=== PATIENT | female | born 1955 | race African-American/Black ===

== ENCOUNTER 2023-08-11 18:17 | Observation (INO) | payer MEDICARE, MEDICAID ==
[~2023-08-11] VITALS: Ht 172.7 cm; Wt 116.0 kg
[2023-08-11] VITALS (12 sets, daily range): BP systolic 140–188; BP diastolic 71–91
[2023-08-11 19:10] LABS: BASO% 0.4 % (0-3); EOS% 2.6 % (0-8); HEMATOCRIT 44.3 % (37.0-47.0); HEMOGLOBIN 14.1 g/dl (12.0-16.0); IMMATURE GRANULOCYTES 0.3 % (0.0-5.0); LYMPH% 50.7 % (15-41); MEAN CELL VOLUME 95.3 fL CALC (80.0-100.0); MEAN CORPUSCULAR HGB 30.3 pG CALC (26.0-32.0); MEAN CORPUSCULAR HGB CONC 31.8 g/dL CAL (32.0-36.0); MONO% 8.5 % (2-13); NEUT# 2.88 thou/uL (2.00-7.15); NEUT% 37.5 % (42-76); RED BLOOD COUNT 4.65 mill/uL (4.20-5.60)
[2023-08-11 19:16] LABS: ALBUMIN 3.9 g/dL (3.2-5.0); ALKALINE PHOSPHATASE 74 u/l (38-126); ANION GAP 13 (6-22 (CALC)); BILIRUBIN, TOTAL 0.4 mg/dL (0.02-1.3); BUN 6 mg/dL (8-23); BUN/CREATININE RATIO 8 (12-20 (CALC)); CARBON DIOXIDE 25 mmol/l (22-30); CHLORIDE 107 mmol/l (95-108); CREATININE 0.8 mg/dL (0.5-1.0); GFR FOR AFR.AMER. > 60 ML/MIN (>=60 (CALC)); GFR OTHER RACES > 60 ML/MIN (>=60 (CALC)); LIPASE 54 u/l (23-300); POTASSIUM 3.4 mmol/l (3.5-5.1); SGOT/AST 34 u/l (9-36); SODIUM 141 mmol/l (137-146); TOTAL PROTEIN 7.5 g/dL (6.3-8.2)
[2023-08-11 20:32] LABS: URINE BILIRUBIN - DIPSTICK Negative (NEGATIVE); URINE BLOOD DIPSTICK Negative (NEGATIVE); URINE GLUCOSE - DIPSTICK Negative (NEGATIVE); URINE KETONE Negative (NEGATIVE); URINE LEUK ESTERASE Negative (NEGATIVE); URINE NITRITE - DIPSTICK Negative (Negative); URINE PROTEIN - DIPSTICK Negative (NEG-TRACE); URINE UROBILINOGEN - DIPSTICK 0.2 E.U./dL (0.2)
[2023-08-11 20:35] LABS: URINE COLOR Yellow
[2023-08-11] MEDS ORDERED: MECLIZINE25 MG PO (20:41)
[2023-08-11] MEDS ORDERED: METRONIDAZOLE500 MG PO (20:42)
[2023-08-11] MEDS ORDERED: BACLOFEN20 MG PO (20:42)
[2023-08-11] MEDS ORDERED: ATORVASTATIN CA40 MG PO (20:42)
[2023-08-11] MEDS ORDERED: MONTELUKAST SOD10 MG PO (20:42)
[2023-08-12 05:06] VITALS: BP 132/51
[2023-08-12 06:17] LABS: BASO% 0.3 % (0-3); EOS% 0.3 % (0-8); HEMATOCRIT 42.5 % (37.0-47.0); HEMOGLOBIN 13.7 g/dl (12.0-16.0); IMMATURE GRANULOCYTES 0.1 % (0.0-5.0); LYMPH% 23.7 % (15-41); MEAN CELL VOLUME 93.6 fL CALC (80.0-100.0); MEAN CORPUSCULAR HGB 30.2 pG CALC (26.0-32.0); MEAN CORPUSCULAR HGB CONC 32.2 g/dL CAL (32.0-36.0); MONO% 7.8 % (2-13); NEUT# 4.94 thou/uL (2.00-7.15); NEUT% 67.8 % (42-76); RED BLOOD COUNT 4.54 mill/uL (4.20-5.60); RED CELL DISTRI WIDTH 13.9 % (11.5-15.5)
[2023-08-12 06:30] VITALS: BP 140/63
[2023-08-12 06:40] LABS: ALBUMIN 3.4 g/dL (3.2-5.0); ALKALINE PHOSPHATASE 84 u/l (38-126); ANION GAP 12 (6-22 (CALC)); BILIRUBIN, TOTAL 0.5 mg/dL (0.02-1.3); BUN 6 mg/dL (8-23); BUN/CREATININE RATIO 8 (12-20 (CALC)); CALCULATED LDLCHOLESTEROL 123 mg/dL (62-129 (CALC)); CARBON DIOXIDE 23 mmol/l (22-30); CHLORIDE 111 mmol/l (95-108); CHOLESTEROL HDL RATIO 4.6 (<4.4 (CALC)); CREATININE 0.7 mg/dL (0.5-1.0); GFR FOR AFR.AMER. > 60 ML/MIN (>=60 (CALC)); GFR OTHER RACES > 60 ML/MIN (>=60 (CALC)); HDL CHOLESTEROL 42 mg/dL (39.0-59.0); MAGNESIUM 1.8 mg/dL (1.6-2.3); POTASSIUM 3.8 mmol/l (3.5-5.1); SGOT/AST 28 u/l (9-36); SODIUM 143 mmol/l (137-146); TOTAL CHOLESTEROL 195 mg/dl (0-199); TOTAL PROTEIN 6.4 g/dL (6.3-8.2); TOTAL TRIGLYCERIDES 150 mg/dl (0-149); VLDL CHOLESTROL 30 mg/dl (1-41 (CALC))
[2023-08-12 10:51] VITALS: BP 142/66
[2023-08-12 14:52] VITALS: BP 157/63
[2023-08-12 19:33] VITALS: BP 135/61
[2023-08-12 23:42] VITALS: BP 131/55
[2023-08-13 06:41] LABS: BASO% 0.5 % (0-3); HEMOGLOBIN 12.3 g/dl (12.0-16.0); LYMPH% 50.9 % (15-41); MEAN CELL VOLUME 94.1 fL CALC (80.0-100.0); MEAN CORPUSCULAR HGB 30.4 pG CALC (26.0-32.0); MEAN CORPUSCULAR HGB CONC 32.4 g/dL CAL (32.0-36.0); MONO% 10.1 % (2-13); NEUT# 2.25 thou/uL (2.00-7.15); NEUT% 35.5 % (42-76); RED BLOOD COUNT 4.04 mill/uL (4.20-5.60); RED CELL DISTRI WIDTH 14.3 % (11.5-15.5)
[2023-08-13 07:02] LABS: ALKALINE PHOSPHATASE 69 u/l (38-126); ANION GAP 10 (6-22 (CALC)); BILIRUBIN, TOTAL 0.6 mg/dL (0.02-1.3); BUN 6 mg/dL (8-23); BUN/CREATININE RATIO 8 (12-20 (CALC)); CARBON DIOXIDE 25 mmol/l (22-30); CHLORIDE 111 mmol/l (95-108); CREATININE 0.8 mg/dL (0.5-1.0); GFR FOR AFR.AMER. > 60 ML/MIN (>=60 (CALC)); GFR OTHER RACES > 60 ML/MIN (>=60 (CALC)); MAGNESIUM 1.6 mg/dL (1.6-2.3); POTASSIUM 3.8 mmol/l (3.5-5.1); SGOT/AST 24 u/l (9-36); SODIUM 142 mmol/l (137-146); TOTAL PROTEIN 5.7 g/dL (6.3-8.2)
[2023-08-13 07:09] VITALS: BP 145/68
[2023-08-13 11:04] VITALS: BP 116/45
[2023-08-13 15:37] VITALS: BP 113/61
[2023-08-13 19:30] VITALS: BP 109/64
[2023-08-14] VITALS (9 sets, daily range): BP systolic 99–167; BP diastolic 44–102
[2023-08-14 05:49] LABS: BASO% 0.5 % (0-3); EOS% 1.5 % (0-8); HEMATOCRIT 42.1 % (37.0-47.0); HEMOGLOBIN 13.1 g/dl (12.0-16.0); IMMATURE GRANULOCYTES 0.1 % (0.0-5.0); LYMPH% 39.8 % (15-41); MEAN CELL VOLUME 99.1 fL CALC (80.0-100.0); MEAN CORPUSCULAR HGB 30.8 pG CALC (26.0-32.0); MEAN CORPUSCULAR HGB CONC 31.1 g/dL CAL (32.0-36.0); MONO% 7.4 % (2-13); NEUT# 4.5 thou/uL (2.00-7.15); NEUT% 50.7 % (42-76); RED BLOOD COUNT 4.25 mill/uL (4.20-5.60); RED CELL DISTRI WIDTH 14.5 % (11.5-15.5)
[2023-08-14 06:31] LABS: ALBUMIN 3.4 g/dL (3.2-5.0); ALKALINE PHOSPHATASE 66 u/l (38-126); BUN 5 mg/dL (8-23); BUN/CREATININE RATIO 7 (12-20 (CALC)); CHLORIDE 117 mmol/l (95-108); CREATININE 0.8 mg/dL (0.5-1.0); GFR FOR AFR.AMER. > 60 ML/MIN (>=60 (CALC)); GFR OTHER RACES > 60 ML/MIN (>=60 (CALC)); MAGNESIUM 1.6 mg/dL (1.6-2.3); SODIUM 144 mmol/l (137-146); TOTAL PROTEIN 6.5 g/dL (6.3-8.2)
[2023-08-14 06:34] LABS: ANION GAP 15 (6-22 (CALC)); CARBON DIOXIDE 17 mmol/l (22-30)
[2023-08-14 06:35] LABS: POTASSIUM 4.6 mmol/l (3.5-5.1); SGOT/AST 45 u/l (9-36)
[2023-08-14] MEDS ORDERED: PANTOPRAZOLE SO40 M1 PO (14:23)
[2023-08-14] MEDS ORDERED: LOSARTAN POTASS25 MG PO (14:25)
== END 2023-08-14 15:41 | disposition home or self-care (01) ==
LOC: ED 18:17 → ED-I 20:04 → ED 20:19 → EDBD 20:20 → MS2 20:20
PROVIDERS: Nurse Practitioner; Nurse Practitioner Family; ADMIT Student in an Organized Health Care Education/Training Program; ATTEND Student in an Organized Health Care Education/Training Program
PROC: 0DBC8ZX Excision of Ileocecal Valve, Via Natural or Artificial Opening Endoscopic, Diagnostic (ICD-10-PCS; principal; 2023-08-14)
PROC: 0DJ08ZZ Inspection of Upper Intestinal Tract, Via Natural or Artificial Opening Endoscopic (ICD-10-PCS; 2023-08-14)
DX: R07.9 Chest pain, unspecified (principal); R10.84 Generalized abdominal pain; K21.9 Gastro-esophageal reflux disease without esophagitis; K44.9 Diaphragmatic hernia without obstruction or gangrene; D12.0 Benign neoplasm of cecum; K64.8 Other hemorrhoids; K58.0 Irritable bowel syndrome with diarrhea; I10 Essential (primary) hypertension; J44.9 Chronic obstructive pulmonary disease, unspecified; Z20.822 Contact with and (suspected) exposure to COVID-19
CPT/HCPCS: J1650; S0164

== ENCOUNTER 2023-08-18 14:01 | Emergency (ER) | payer MEDICARE, MEDICAID ==
[2023-08-18] VITALS (18 sets, daily range): BP systolic 86–171; BP diastolic 54–108
[~2023-08-18] VITALS: Ht 172.7 cm; Wt 117.0 kg
[~2023-08-18 14:01] MED LIST: ATORVASTATIN CA40 MG PO; BACLOFEN20 MG PO; LOSARTAN POTASS25 MG PO; MECLIZINE25 MG PO; METRONIDAZOLE500 MG PO; MONTELUKAST SOD10 MG PO; PANTOPRAZOLE SO40 M1 PO
[2023-08-18 15:42] LABS: URINE BILIRUBIN - DIPSTICK Negative (NEGATIVE); URINE BLOOD DIPSTICK Negative (NEGATIVE); URINE GLUCOSE - DIPSTICK Negative (NEGATIVE); URINE KETONE Negative (NEGATIVE); URINE LEUK ESTERASE Negative (NEGATIVE); URINE NITRITE - DIPSTICK Negative (Negative); URINE PROTEIN - DIPSTICK Negative (NEG-TRACE); URINE UROBILINOGEN - DIPSTICK 0.2 E.U./dL (0.2)
[2023-08-18 15:44] LABS: URINE COLOR Yellow
[2023-08-18 17:47] LABS: BASO% 0.4 % (0-3); EOS% 1.3 % (0-8); HEMATOCRIT 36.3 % (37.0-47.0); HEMOGLOBIN 11.9 g/dl (12.0-16.0); LYMPH% 36.5 % (15-41); MEAN CELL VOLUME 93.8 fL CALC (80.0-100.0); MEAN CORPUSCULAR HGB 30.7 pG CALC (26.0-32.0); MEAN CORPUSCULAR HGB CONC 32.8 g/dL CAL (32.0-36.0); MONO% 9.4 % (2-13); NEUT# 4.07 thou/uL (2.00-7.15); NEUT% 52.4 % (42-76); RED BLOOD COUNT 3.87 mill/uL (4.20-5.60); RED CELL DISTRI WIDTH 13.5 % (11.5-15.5)
[2023-08-18 18:01] LABS: ALBUMIN 3.3 g/dL (3.2-5.0); ALKALINE PHOSPHATASE 72 u/l (38-126); AMYLASE 58 u/l (30-110); BUN 4 mg/dL (8-23); BUN/CREATININE RATIO 5 (12-20 (CALC)); CHLORIDE 112 mmol/l (95-108); CREATININE 0.7 mg/dL (0.5-1.0); GFR FOR AFR.AMER. > 60 ML/MIN (>=60 (CALC)); GFR OTHER RACES > 60 ML/MIN (>=60 (CALC)); LIPASE 43 u/l (23-300); SGOT/AST 27 u/l (9-36); SODIUM 142 mmol/l (137-146); TOTAL PROTEIN 6.2 g/dL (6.3-8.2)
[2023-08-18 18:05] LABS: ANION GAP 9 (6-22 (CALC)); BILIRUBIN, TOTAL 0.5 mg/dL (0.02-1.3); CARBON DIOXIDE 24 mmol/l (22-30); POTASSIUM 3.3 mmol/l (3.5-5.1)
[2023-08-18] MEDS ORDERED: DICYCLOMINE HYD10 MG PO (20:52)
== END 2023-08-18 21:12 | disposition home or self-care (01) ==
LOC: ED 14:01
PROVIDERS: Nurse Practitioner
DX: R10.12 Left upper quadrant pain (principal); K58.9 Irritable bowel syndrome, unspecified; I10 Essential (primary) hypertension; J44.9 Chronic obstructive pulmonary disease, unspecified
CPT/HCPCS: Q9967

== ENCOUNTER 2023-09-18 15:31 | Inpatient (IN) | payer MEDICARE, MEDICAID ==
[~2023-09-18] VITALS: Ht 172.7 cm; Wt 113.4 kg
[~2023-09-18 15:31] MED LIST changes: +DICYCLOMINE HYD10 MG PO
[2023-09-19] MEDS ORDERED: ASPIRIN325 MG PO (13:06)
[2023-09-19] MEDS ORDERED: COQ-1030 M1 PO (13:07)
[2023-09-19] MEDS ORDERED: ALLERGY RE50 MCG/ACT (13:09)
[2023-09-23] VITALS (8 sets, daily range): BP systolic 107–130; BP diastolic 45–55
[2023-09-23] MEDS ORDERED: ROCURONIUM BROMIDE 10 MG/ML 5ML VIAL IV ONE (07:58)
[2023-09-23] MEDS ORDERED: LACTATED RINGER'S 1,000 ML BAG IV ONE (07:58)
[2023-09-23] MEDS ORDERED: GLYCOPYRROLATE 0.2 MG/ML IV ONE (07:58)
[2023-09-23] MEDS ORDERED: ePHEDrine SULFATE 50 MG/ML AMP IV ONE (07:58)
[2023-09-23] MEDS ORDERED: DEXAMETHASONE SODIUM PHOSPHATE PF 10 MG/ML SDV IV ONE (07:58)
[2023-09-23] MEDS ORDERED: PROPOFOL 200 MG/20 ML VIAL IV ONE (07:58)
[2023-09-23] MEDS ORDERED: MORPHINE SULFATE 4 MG/ML VIAL IV ONE (07:58)
[2023-09-23] MEDS ORDERED: ONDANSETRON HCl 4 MG/2 ML SDV IV ONE (07:58)
[2023-09-23] MEDS ORDERED: KETOROLAC TROMETHAMINE 30 MG/ML SDV IV ONE (07:58)
[2023-09-23] MEDS ORDERED: SUCCINYLCHOLINE CHLORIDE 20 MG/ML 10ML VIAL IV ONE (07:58)
[2023-09-23] MEDS ORDERED: ACETAMINOPHEN 1,000 MG/100 ML VIAL IV ONE (07:58)
[2023-09-23] MEDS ORDERED: NEOSTIGMINE METHYLSULFATE IV ONE (07:58)
[2023-09-23] MEDS ORDERED: ALBUTEROL SULFATE 2.5 MG VIAL ONE (08:33)
[2023-09-23] MEDS ORDERED: FAMOTIDINE 10MG/ML 2ML SDV IV ONE (08:34)
[2023-09-23] MEDS ORDERED: ceFAZolin Sodium 2 GM/VIAL SDV ONE (08:34)
[2023-09-23] MEDS ORDERED: LACTATED RINGER'S 0 ML IV ONE (08:34)
[2023-09-23] MEDS ORDERED: SODIUM CHLORIDE 0.9% 100 ML IV ONE (08:34)
[2023-09-23] MEDS ORDERED: LIDOcaine HCl 1% (Local Anesth.) 20 ML VIAL ONE (09:13)
[2023-09-23] MEDS ORDERED: HYDROmorphone HCL 2 MG/AMP IV PRN (10:50)
[2023-09-23] MEDS ORDERED: ONDANSETRON HCl 4 MG/2 ML SDV IV PRN (10:50)
[2023-09-23] MEDS ORDERED: SODIUM CHLORIDE 0.9% 1,000 ML IV PRN ×3 (10:50→19:20)
[2023-09-23] MEDS ORDERED: ENOXAPARIN SODIUM 30 MG/0.3 ML INJ SC SCH (11:30)
[2023-09-23] MEDS ORDERED: KETOROLAC TROMETHAMINE 15 MG/ML SDV IV SCH (12:00)
[2023-09-23] MEDS ORDERED: PANTOPRAZOLE SODIUM Sesquihydr 40 MG/TAB PO SCH (12:00)
[2023-09-23] MEDS ORDERED: PIPERACILLIN Sodium-Tazobactam 3.375 GM in SODIUM CHLORIDE 0.9% 100 ML IV SCH ×2 (12:00→18:00)
[2023-09-23] MEDS ORDERED: LACTATED RINGER'S 1,000 ML IV ONE (12:56)
[2023-09-23] MEDS ORDERED: SODIUM CHLORIDE 0.9% 10 ML SYR ONE (13:21)
[2023-09-23] MEDS ORDERED: HYDROmorphone HCL 2 MG/AMP ONE (13:21)
[2023-09-23] MEDS ORDERED: ONDANSETRON HCl 4 MG/2 ML SDV ONE (13:38)
[2023-09-23 19:43] LABS: BASO% 0.1 % (0-3); HEMATOCRIT 35.9 % (37.0-47.0); HEMOGLOBIN 11.6 g/dl (12.0-16.0); IMMATURE GRANULOCYTES 0.2 % (0.0-5.0); LYMPH% 5.3 % (15-41); MEAN CELL VOLUME 96.5 fL CALC (80.0-100.0); MEAN CORPUSCULAR HGB 31.2 pG CALC (26.0-32.0); MEAN CORPUSCULAR HGB CONC 32.3 g/dL CAL (32.0-36.0); NEUT# 12.12 thou/uL (2.00-7.15); NEUT% 90.4 % (42-76); RED BLOOD COUNT 3.72 mill/uL (4.20-5.60); RED CELL DISTRI WIDTH 13.9 % (11.5-15.5)
[2023-09-23 19:55] LABS: ANION GAP 8 (6-22 (CALC)); BUN 8 mg/dL (8-23); BUN/CREATININE RATIO 11 (12-20 (CALC)); CARBON DIOXIDE 26 mmol/l (22-30); CHLORIDE 113 mmol/l (95-108); CREATININE 0.8 mg/dL (0.5-1.0); GFR FOR AFR.AMER. > 60 ML/MIN (>=60 (CALC)); GFR OTHER RACES > 60 ML/MIN (>=60 (CALC)); SODIUM 143 mmol/l (137-146)
[2023-09-23 20:00] LABS: POTASSIUM 4.2 mmol/l (3.5-5.1)
[2023-09-24] VITALS (7 sets, daily range): BP systolic 102–143; BP diastolic 42–54
[2023-09-24 07:35] LABS: BASO% 0.1 % (0-3); HEMATOCRIT 34.3 % (37.0-47.0); IMMATURE GRANULOCYTES 0.1 % (0.0-5.0); LYMPH% 9.6 % (15-41); MEAN CELL VOLUME 97.4 fL CALC (80.0-100.0); MEAN CORPUSCULAR HGB 31.3 pG CALC (26.0-32.0); MEAN CORPUSCULAR HGB CONC 32.1 g/dL CAL (32.0-36.0); MONO% 7.9 % (2-13); NEUT# 11.28 thou/uL (2.00-7.15); NEUT% 82.3 % (42-76); RED BLOOD COUNT 3.52 mill/uL (4.20-5.60); RED CELL DISTRI WIDTH 14.1 % (11.5-15.5)
[2023-09-24 07:54] LABS: ANION GAP 7 (6-22 (CALC)); BUN 11 mg/dL (8-23); BUN/CREATININE RATIO 12 (12-20 (CALC)); CARBON DIOXIDE 26 mmol/l (22-30); CHLORIDE 113 mmol/l (95-108); CREATININE 0.9 mg/dL (0.5-1.0); GFR FOR AFR.AMER. > 60 ML/MIN (>=60 (CALC)); GFR OTHER RACES > 60 ML/MIN (>=60 (CALC)); POTASSIUM 4.3 mmol/l (3.5-5.1); SODIUM 142 mmol/l (137-146)
[2023-09-24] MEDS ORDERED: ATORVASTATIN CALCIUM 40 MG/TAB PO SCH (09:00)
[2023-09-24] MEDS ORDERED: FLUTICASONE PROPIONATE (Nasal) 50MCG/SPRAY INH SCH (09:00)
[2023-09-24] MEDS ORDERED: MECLIZINE HCL 25 MG/TAB PO SCH (09:00)
[2023-09-24] MEDS ORDERED: LOSARTAN Potassium 25 MG/TAB PO SCH (09:00)
[2023-09-24] MEDS ORDERED: MONTELUKAST SODIUM 10 MG/TAB PO SCH (09:00)
[2023-09-24] MEDS ORDERED: D5 1/2 NaCL W/KCL 20MEQ 1,000 ML IV PRN (09:30)
[2023-09-24] MEDS ORDERED: SODIUM CHLORIDE 0.9% 1,000 ML IV SCH (10:00)
[2023-09-25 00:17] VITALS: BP 109/36
[2023-09-25 03:24] VITALS: BP 122/45
[2023-09-25 07:00] VITALS: BP 125/56
[2023-09-25] MEDS ORDERED: oxyCODONE 5MG/ ACETAMINOPHEN 325MG TAB PO PRN (12:35)
[2023-09-25 15:13] VITALS: BP 131/49
[2023-09-25 20:15] VITALS: BP 152/53
[2023-09-26 00:25] VITALS: BP 137/53
[2023-09-26 04:46] VITALS: BP 173/61
[2023-09-26 07:24] VITALS: BP 146/53
[2023-09-26 08:47] VITALS: BP 146/53
[2023-09-26] MEDS ORDERED: PERCOCET 5/325M1 TAB PO (09:34)
== END 2023-09-26 16:58 | disposition home or self-care (01) | DRG 331 ==
LOC: MS2 09-23 08:26 → OR 09-23 09:15 → MS2 09-26 16:58
PROVIDERS: ADMIT Surgery; ATTEND Surgery
PROC: 0DTF0ZZ Resection of Right Large Intestine, Open Approach (ICD-10-PCS; principal; 2023-09-23)
PROC: 05H633Z Insertion of Infusion Device into Left Subclavian Vein, Percutaneous Approach (ICD-10-PCS; 2023-09-23)
DX: C18.2 Malignant neoplasm of ascending colon (principal); I10 Essential (primary) hypertension; Z90.49 Acquired absence of other specified parts of digestive tract
CPT/HCPCS: J0131; J0690; J1100; J1650; J2710